=== PATIENT | male | born 1935 | race Two or more races ===

== ENCOUNTER 2018-07-26 13:29 | Emergency (ER) | payer MEDICARE ==
[~2018-07-26] VITALS: Ht 165.1 cm; Wt 63.5 kg
[2018-07-26 14:00] VITALS: BP 186/102
== END 2018-07-26 15:17 | disposition home or self-care (01) ==
LOC: ER 13:29 → EDAGE 13:29 → ER 15:17
DX: S00.83XA Contusion of other part of head, initial encounter (principal); W19.XXXA Unspecified fall, initial encounter; Y93.89 Activity, other specified; Y99.8 Other external cause status; Y92.89 Other specified places as the place of occurrence of the external cause
CPT/HCPCS: 70450; 72125

== ENCOUNTER 2019-07-30 17:50 | Inpatient (IN) | payer MEDICARE ==
[~2019-07-30] VITALS: Ht 165.1 cm; Wt 56.7 kg
[2019-07-30 19:16] LABS: Basophils # (auto) 0.1 uL; Eosinophils # (auto) 0.1 uL; Lymphocytes # (auto) 0.7 uL; Neutrophils # (auto) 5.7 uL
[2019-07-30 19:19] LABS: Basophils % (auto) 1.2 % (0.0-2.0); Eosinophils % (auto) 0.9 % (0.0-7.0); Hematocrit 35.9 % (41.0-53.0); Hemoglobin 11.1 g/dL (13.5-17.5); Lymphocytes % (auto) 10.1 % (10.0-50.0); Mean Corpuscular Hemoglobin 24.4 pg (28.0-32.0); Mean Corpuscular Volume 78.7 fL (80.0-100.0); Monocytes # (auto) 0.5 uL; Monocytes % (auto) 7.1 % (0.0-12.0); Neutrophils % (auto) 80.7 % (37.0-80.0); Nucleated Red Blood Cells % 0.1 %; Platelet Count (auto) 353 10^3/uL (140-450); Red Blood Cells 4.56 10^6/uL (4.5-5.90); Red Cell Distribution Width 18.1 % (11.8-14.3); White Blood Cell 7.1 10^3/uL (4.4-10.8)
[2019-07-30 19:29] LABS: Chloride 104 mmol/L (98-107); Sodium 135 mmol/L (136-145)
[2019-07-30 19:32] LABS: Lactic Acid w/Reflex 3.5 mmol/L (0.4-2.0)
[2019-07-30 19:36] LABS: Alanine Aminotransferase 16 U/L (16-61); Albumin 3.2 g/dL (3.4-5.0); Alkaline Phosphatase 86 U/L (45-117); Aspartate Aminotransferase 29 U/L (15-37); BUN/Creatinine Ratio 11.5; Bilirubin, Total 0.3 mg/dL (0.2-1.0); Blood Alcohol < 3.0 mg/dL (0-5); Blood Urea Nitrogen 13 mg/dL (7-18); Carbon Dioxide 18 mmol/L (21-32); GFR African American 80 mL/min; GFR Non-African American 66 mL/min; Glucose 182 mg/dL (74-106); Magnesium 2.1 mg/dL (1.6-2.6); Total Protein 7.4 g/dL (6.4-8.2)
[2019-07-30 19:46] LABS: Calcium 8.3 mg/dL (8.5-10.1)
[2019-07-30 19:47] LABS: Anion Gap 13 (5-15)
[2019-07-30] MEDS ORDERED: LORazepam 2MG/ML-1ML VIAL IV ONE (21:00)
[2019-07-30 21:50] LABS: Urine Bacteria MANY /hpf (None Seen); Urine Blood TRACE /uL (Negative); Urine Specific Gravity 1.018 (1.001-1.035); Urine WBC 125 /hpf (0 - 3)
[2019-07-30 22:01] LABS: Alcohol, Urine < 3.0 mg/dL (0-5); Amphetamine Screen, Urine NEGATIVE (NEGATIVE); Barbiturate Scree,Urine NEGATIVE (NEGATIVE); Benzodiazephine Screen, Urine NEGATIVE (NEGATIVE); Cannabinoid Screen, Urine NEGATIVE (NEGATIVE); Cocaine Screen, Urine NEGATIVE (NEGATIVE); Opiate Scree,Urine NEGATIVE (NEGATIVE); Phencyclidine Screen, Urine NEGATIVE (NEGATIVE)
[2019-07-30] MEDS ORDERED: SODIUM CHLORIDE 0.9% 1,000 ML IV ONE (23:30)
[2019-07-30] MEDS ORDERED: VANCOMYCIN PER PHARMACY 0 MG IV SCH (23:30)
[2019-07-30] MEDS ORDERED: VANCOMYCIN 1GM/250ML 250 ML IV ONE (23:45)
[2019-07-31] MEDS ORDERED: VANCOMYCIN 1GM/250ML 250 ML IV ONE
[2019-07-31] MEDS ORDERED: LORazepam 2MG/ML-1ML VIAL IV PRN (00:45)
[2019-07-31] MEDS ORDERED: TEMAZEPAM 15 MG CAP PO PRN (00:45)
[2019-07-31] MEDS ORDERED: ONDANSETRON HCL 4 MG/2 ML VIAL IV PRN (00:45)
[2019-07-31] MEDS ORDERED: cloNIDine HCL 0.1 MG TAB PO PRN (00:45)
[2019-07-31] MEDS ORDERED: ACETAMINOPHEN 325 MG TAB PO PRN (00:45)
[2019-07-31 02:10] VITALS: BP 188/91
--- NOTE | 2019-07-31 02:10 | NUR ---
[facility] admit from [facility] admitted to [facility]. Patient oriented to ANGIE LARSEN RN primary RN, unit, room, bed, and unit policies regarding patient care and visiting hours. Safety measures in place bed in lowest position, side rails x2 up, call light within reach. Seizure precautions in place. Patient weighed by bedscale and encouraged to call if they need something. All questions and concerns addressed, patient verbalized understanding. Will continue to monitor every hour and as needed.
--- NOTE | 2019-07-31 02:10 | NUR ---
Fall precautions note Patient assessed and determined to be fall risk. Fall precautions in place, including side bedrails up X 2, bed alarms on, fall risk wristband in place. Patient instructed to call staff regarding any needs involving getting out of bed or bathroom needs. Patient verbalized understanding.
[2019-07-31 02:11] VITALS: BP 188/91
--- NOTE | 2019-07-31 02:58 | NUR ---
IV removal Patient removed left wrist IV, catheter fully intact. Pressure dressing applied to site.
[2019-07-31] MEDS: chlordiazePOXIDE HCL 25 MG CAP PO PRN ×2 (03:27→15:55)
[2019-07-31 05:58] VITALS: BP 144/98
--- NOTE | 2019-07-31 07:22 | NUR ---
Opening Shift Note: Assumed care of patient, asleep in bed. No S/S of distress/SOB or pain. Seizure precaution, fall precaution in place. Bed in lowest locked position, side rails up x 3, call light within reach, side rails padded. Patient will be instructed on POC, will continue to monitor for changes Q1hr and PRN.
[2019-07-31 08:00] VITALS: BP_SYST 136; BP_SYST 144; BP_DIAS 73; BP_DIAS 83
--- NOTE | 2019-07-31 08:20 | NUR ---
Patient denied skin assessment. Will continue to monitor Q1HR.
--- NOTE | 2019-07-31 09:09 | NUR ---
Patient is refusing to turn at this time.
[2019-07-31] MEDS: cefTRIAXone 1GM/50ML D5W 50 ML IV SCH (09:16)
[2019-07-31] MEDS: amLODIPine BESYLATE 5 MG TAB PO SCH (10:30)
[2019-07-31] MEDS: ENOXAPARIN SOD 40 MG/0.4 ML SYRINGE SC SCH (10:30)
[2019-07-31] MEDS: FAMOTIDINE 20 MG TAB PO SCH ×2 (10:31→21:35)
--- NOTE | 2019-07-31 11:20 | NUR ---
Dr. Mcneal at bedside. Discussed POC with patients family. Patient still currently sleeping. Will continue to monitor patient Q1HR.
[2019-07-31] MEDS: FOLIC ACID 1 MG, MULTIPLE VITAMIN 10 ML, MAGNESIUM SULF SDV 50% 8 MEQ, THIAMINE INJ 100... INJ SCH ×5 (12:17)
--- NOTE | 2019-07-31 12:18 | NUR ---
Patient is refusing to turn at this time. Will continue to monitor.
[2019-07-31 12:59] VITALS: BP 136/73
--- NOTE | 2019-07-31 12:59 | NUR ---
Family at bedside. Questions answered. Patient still sleeping. Will continue to monitor patient Q1HR.
--- NOTE | 2019-07-31 14:53 | NUR ---
Patient ambulated to bedside chair with minimal assistance. Bedding changed. Questions answered. Will continue to monitor patient Q1HR.
--- NOTE | 2019-07-31 16:57 | NUR ---
Patient transferred from bedside chair to bed. Resting comfortably. Will continue to monitor.
[2019-07-31 17:00] VITALS: BP 146/79
--- NOTE | 2019-07-31 19:30 | NUR ---
Opening Shift Note Assumed care of patient, awake and alert x2. No S/S of distress/SOB or pain. Instructed on POC and to call for assist PRN. Bed in lowest locked position, call light within reach, side rails up x2, fall precautions in place, sitter at bedside for safety. Will continue to monitor for changes Q1hr and PRN.
[2019-08-01 05:35] VITALS: BP 146/78
[2019-08-01 06:00] VITALS: BP 150/81
[2019-08-01 06:11] LABS: Basophils # (auto) 0.1 uL; Basophils % (auto) 1.1 % (0.0-2.0); Eosinophils # (auto) 0.1 uL; Eosinophils % (auto) 2.6 % (0.0-7.0); Hematocrit 33.8 % (41.0-53.0); Hemoglobin 10.7 g/dL (13.5-17.5); Lymphocytes # (auto) 1.2 uL; Lymphocytes % (auto) 22.1 % (10.0-50.0); Mean Corpuscular Hemoglobin 24.8 pg (28.0-32.0); Mean Corpuscular Hgb Conc. 31.5 g/dL (32.0-36.0); Mean Corpuscular Volume 78.6 fL (80.0-100.0); Monocytes # (auto) 0.5 uL; Monocytes % (auto) 10.2 % (0.0-12.0); Neutrophils # (auto) 3.4 uL; Platelet Count (auto) 302 10^3/uL (140-450); Red Cell Distribution Width 18.4 % (11.8-14.3); White Blood Cell 5.3 10^3/uL (4.4-10.8)
[2019-08-01 06:29] LABS: BUN/Creatinine Ratio 10.3; Calcium 7.7 mg/dL (8.5-10.1); Potassium 4.2 mmol/L (3.5-5.1)
--- NOTE | 2019-08-01 07:12 | NUR ---
Opening Shift Note: Assumed care of patient, asleep in bed. No S/S of distress/SOB or pain. Bed in lowest locked position, side rails up x 2, call light within reach. Side rails padded for seizure protection. Patient will be instructed on POC and to call for assist PRN, will continue to monitor for changes Q1hr and PRN. Addendum: 08/01/19 at 0725 by JUANCHO FLOYD RN RN Bed alarm on for safety. Sitter at bedside for safety.
[2019-08-01] MEDS: cefTRIAXone 1GM/50ML D5W 50 ML IV SCH (08:45)
[2019-08-01 09:00] VITALS: BP 150/81
--- NOTE | 2019-08-01 09:13 | NUR ---
Patient began to refuse antibiotics. Patient educated on the need for them. Patient verbally agreed. Will continue to monitor.
--- NOTE | 2019-08-01 09:35 | NUR ---
Urine bacteria culture collected and sent to lab.
[2019-08-01] MEDS: amLODIPine BESYLATE 5 MG TAB PO SCH (10:18)
[2019-08-01] MEDS: FAMOTIDINE 20 MG TAB PO SCH (10:19)
[2019-08-01] MEDS: ENOXAPARIN SOD 40 MG/0.4 ML SYRINGE SC SCH (10:19)
--- NOTE | 2019-08-01 12:03 | NUR ---
Family at bedside. Discussed POC with patient and family. Family and patient verbally agreed. Will continue to monitor patient Q1HR.
[2019-08-01] MEDS: chlordiazePOXIDE HCL 25 MG CAP PO PRN (12:12)
[2019-08-01] MEDS: FOLIC ACID 1 MG, MULTIPLE VITAMIN 10 ML, MAGNESIUM SULF SDV 50% 8 MEQ, THIAMINE INJ 100... INJ SCH ×5 (12:12)
[2019-08-01 13:30] VITALS: BP 113/79
--- NOTE | 2019-08-01 13:30 | NUR ---
IV infiltrated. Attempted to start another, patient states "I want to go home." Educated patient on doctors order and pending test. Patient verbally agreed. Patient educated on need for IV at this time. Will attempt IV later.
--- NOTE | 2019-08-01 14:01 | NUR ---
IV removal: Right wrist IV DC'd with clean sterile technique, catheter fully intact. Pressure dressing applied to site. Patient tolerated well. Addendum: 08/01/19 at 1843 by JUANCHO FLOYD RN RN Wrong time. Correct time is 1610
--- NOTE | 2019-08-01 15:00 | NUR ---
Patient off unit to "get fresh air", AMA to smoke. Patient accompanied by family and staff. Patient educated on restrictions and to come back to the floor within 30 minutes.
--- NOTE | 2019-08-01 15:17 | NUR ---
Patient back to room. Patient states he is willing to stay and wait for neuro consult.
--- NOTE | 2019-08-01 15:59 | NUR ---
IV insertion: IV access obtained, via clean sterile technique by inserting 20 gauge catheter at left hand after 2 attempts. IV secured properly. No trauma to site. Patient tolerated well.
[2019-08-01 17:00] VITALS: BP 128/65
--- NOTE | 2019-08-01 19:37 | NUR ---
AMA Note [facility] states they want to leave the hospital Against Medical Advice (AMA). Patient encouraged to stay for further treatment/stabilization. Patient advised of the risks and benefits of leaving AMA. Patient verbalized understanding. Patient encouraged to return to the ER if symptoms do not improve or worsen.
== END 2019-08-01 19:37 | disposition left against medical advice (07) | DRG 894 ==
LOC: EDBD 17:50 → ER 17:50 → OVERFLOW 17:51 → EAST 07-31 02:10
PROVIDERS: ADMIT Nurse Practitioner; ATTEND Nurse Practitioner
DX: F10.231 Alcohol dependence with withdrawal delirium (principal); G93.41 Metabolic encephalopathy; N39.0 Urinary tract infection, site not specified; F03.91 Unspecified dementia, unspecified severity, with behavioral disturbance; R56.9 Unspecified convulsions; R73.9 Hyperglycemia, unspecified; I10 Essential (primary) hypertension; F17.200 Nicotine dependence, unspecified, uncomplicated
CPT/HCPCS: 36415; 70450; 71045; 80048; 80053; 80307; 80320; 81001; 82140; 83036; 83605; 83735; 83880; 84484; 85025; 87040; 87086; 93005; G0378; J0696